=== PATIENT | male | born 1960 | race Caucasian/White ===

== ENCOUNTER 2021-03-16 14:26 | Emergency (ER) | payer OTHER ==
[2021-03-16] MEDS ORDERED: IBU600 MG PO (15:06)
[2021-03-16] MEDS ORDERED: CYCLOBENZAPRINE10 MG PO (15:06)
== END 2021-03-16 15:58 | disposition home or self-care (01) ==
LOC: ER1 14:26
DX: M25.562 Pain in left knee (principal); G89.29 Other chronic pain; E11.9 Type 2 diabetes mellitus without complications; I10 Essential (primary) hypertension
CPT/HCPCS: 73562; 96372; 99283; J1885

== ENCOUNTER → 2021-03-22 | Outpatient (CLI) | payer OTHER ==
[~2021-03-22] MED LIST: CYCLOBENZAPRINE10 MG PO; IBU600 MG PO
== END ==
LOC: EMI 13:20
DX: S83.242A Other tear of medial meniscus, current injury, left knee, initial encounter (principal); R93.6 Abnormal findings on diagnostic imaging of limbs; S82.145A Nondisplaced bicondylar fracture of left tibia, initial encounter for closed fracture
CPT/HCPCS: 73721